=== PATIENT | male | born 1975 | race Caucasian/White ===

== ENCOUNTER 2021-08-14 10:20 | Outpatient (CLI) | payer MEDICAID, SELFPAY ==
[2021-08-14 10:58] LABS: Absolute Lymphocyte Count 1.79 X10^3/uL (0.83-4.51); Absolute Neutrophil Count 4.4 X10^3/uL (2.0-7.7); Basophil# 0.05 X10^3/uL; Basophil% 0.7 % (0-1); Eosinophils% 1.5 % (0-5); Hematocrit 45.3 % (40-54); Lymphocyte # 1.79 X10^3/ul (0.83-4.51); Lymphocyte % 26.1 % (19-41); Mean Corp Hgb Conc 33.1 g/dL (32-36); Mean Corpuscular Hgb 28.5 pg (27.0-32.0); Mean Corpuscular Volume 86.1 fL (80-94); Mean Platelet Vol. 10.6 fl (6.2-12.0); Monocyte% 7.3 % (0-10); NRBC Flagged by Analyzer 0 % (0-5); Neutrophil % 64.3 % (47-70); Platelet Count 266 K/mm3 (150-450); RBC Distribution Width CV 12.2 % (11.6-14.6); RBC Distribution Width SD 38.6 fl (35.1-43.9); Red Blood Count 5.26 M/mm3 (4.6-6.2); White Blood Count 6.9 K/mm3 (4.4-11.0)
[2021-08-14 11:38] LABS: ALB/GLOB Ratio 1.1 RATIO (0.9-2.4); AST(SGOT) 15 U/L (15-37); Alanine Aminotransfer ALT/SGPT 24 U/L (16-61); Albumin, Serum 3.8 g/dL (3.2-5.0); Alkaline Phosphatase 77 U/L (45-117); Anion Gap 5 (5-15); BUN 12 mg/dL (7-18); Calcium,Total 8.6 mg/dL (8.5-10.1); Chloride 105 mmol/L (98-107); Creatinine, Serum 0.92 mg/dL (0.70-1.30); EST Glomerular Filtration Rate 95 mL/min (>60); Est Glom Filt Rate - Afr Amer 115 mL/min (>60); Globulin 3.5 g/dL (2.2-4.2); Glucose 73 mg/dL (74-106); Lipase 156 U/L (73-393); Potassium 3.9 mmol/L (3.5-5.1); Protein, Total 7.3 g/dL (6.4-8.2); Sodium Level 138 mmol/L (136-145); T4 Free Direct 0.93 ng/dL (0.76-1.46)
[2021-08-15 08:33] LABS: Thyroid Peroxidase AB 33 IU/mL (0-34)
== END 2021-08-14 23:59 | disposition home or self-care (01) ==
LOC: PAVLAB 10:27
PROVIDERS: PCP Nurse Practitioner Adult Health; Referring Provider Nurse Practitioner Adult Health; Visit Provider Nurse Practitioner Adult Health
DX: K51.911 Ulcerative colitis, unspecified with rectal bleeding (principal)
CPT/HCPCS: 36415; 80053; 83690; 84439; 84443; 85025; 86376

== ENCOUNTER 2021-10-30 05:42 | Day surgery (SDC) | payer MEDICAID, SELFPAY ==
[2021-10-30] MEDS: Lactated Ringers 1,000 ML 15 ML IV (06:20)
[2021-10-30 06:30] VITALS: BP 123/64; PULSE 65; RESP 16; TEMP 36.3; O2SAT 98; BMI 23.2
--- NOTE | 2021-10-30 06:59 | PCM.HP.BLA ---
History and Physical Date of Admission: 10/30/21 45 M who presents to the office today for establish care with GI for ulcerative colitis. Flare of symptoms x one month. Having diarrhea and dark blood in stools. 5 lb weight loss in past 2 wks unintentionally. Denies heartburn, reflux, cough, sore throat, dysphagia, nausea, vomiting, bloating, constipation. Diagnosed in 2009, tried several meds (he doesn't recall names) without relief; symptoms resolved spontaneously. No rashes. No dry eyes or dry mouth. Left eye has drooped intermittently recently. Back pain, knee pains Increased stress recently. Sertraline is a new medication. 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 2001 first colonoscopy, wasn't fully sedated, diagnosed with IBS. 2009, second and most recent colonoscopy, no issues, diagnosed with ulcerative colitis. Uncle of colon cancer. Cousins with ulcerative colitis. ROS Const Constitutional: Positive for fatigue; No anorexia, body ache, chills, excessive sweating, fever(s), frequent falls, headache(s), decreased energy, malaise, night sweats, snoring, weakness, weight change, sleep problems, abnormal sleep pattern, change in appetite or other Eyes Eyes: No blurry vision, change in vision, double vision, irritation, discharge, vision loss, dry eyes, bulging eyes, floaters, visual disturbances, eye pain, Light sensitivity, spots in vision, tunnel vision or other ENT ENT: No abnormal hearing, ear or mastoid pain, ear discharge, ear pressure, hearing loss, tinnitus, dizziness/vertigo, balance problems, nosebleed/epistaxis, nasal congestion, nasal obstruction, nose pain, sinus pressure, sinus pain, nasal discharge, post nasal drip, headache(s), facial pain, dental pain, dry mouth, difficulty swallowing, bad breath, hoarseness, lip swelling, mouth lesions, mouth pain, neck pain, sore throat, tongue swelling, throat swelling or other Resp Respiratory: No cough, change in phlegm color, chest congestion, excessive phlegm production, hemoptysis, pain on inspiration, shortness of breath, pain with cough, snoring, stridor, wheezing or other Cardio Cardiology: No chest pain at rest, chest pain with exertion, leg pain with exertion, excessive sweating, shortness of breath, dyspnea on exertion, generalized swelling, irregular heart rhythm, lightheadedness, orthopnea, radiating jaw, neck or arm pain, fast heart rate, slow heart rate, palpitations, difficulty breathing or other Gastro GI: No difficulty swallowing Musc Musculoskeletal: Positive for joint pain, back pain and Arthritis; No abnormal gait, deformity, joint swelling, limited range of motion, loss of height, muscle cramps, muscle weakness, decreased muscle mass, myalgias, neck pain, numbness, radiating pain into limb, stiffness, tingling, sciatica, restless legs, leg pain at night, leg pain with exertion or other Neuro Neurology: No abnormal gait, abnormal hearing, behavioral changes, confusion, weakness, frequent falls, headache(s), memory loss, numbness, tingling, visual disturbances or restless legs Psych Psychiatric: No abnormal sleep pattern, No lack of enjoyment, Positive for anxiety, No behavioral changes, No change in appetite, No confusion, Positive for depression, No difficulty concentrating, No hopelessness, No irritability, No memory loss, No mood swings, No panic attacks, Positive for paranoia, No Thoughts of harming yourself/Others, No hallucinations, No Behavioral Problems, No Compulsive Behavior, No hyperactivity, Positive for inattentiveness, Positive for obsessions/compulsions, No Temper Tantrums, No suicidal ideation and No other Endo Endocrine: Positive for fatigue; No excessive sweating, weight change or other Aller/Imm Allergy/Immunologic: No lip swelling, throat swelling, tongue swelling or wheezing Nestor/Lymp Hematologic/Lymphatic: No easy bleeding, easy bruising, enlarged lymph nodes or other Exam Const General: cooperative, healthy appearing, well developed and well groomed Nutritional Appearance: thin Neck Neck: normal visual inspection and supple Resp Effort & Inspection: normal respiratory effort GI Inspection: normal to inspection Assessment and Plan Assessment and Plan (1) Hematochezia: Status: Acute (2) Diarrhea: Status: Acute (3) Ulcerative colitis: Status: Acute Orders: Orders: CRP Today K92.1, R19.7, K51.90 Erythrocyte Sed Rate Today K92.1, R19.7, K51.90 Calprotectin, Stool Today K92.1, R19.7, K51.90 Celiac Disease Profile Today K92.1, R19.7, K51.90 Ova and Parasites 8623 Today K92.1, R19.7, K51.90 CDIFF (PCR) Today K92.1, R19.7, K51.90 ENTERIC PATHOGEN PANEL STOOL Today K92.1, R19.7, K51.90 Stool Lactoferrin/WBC Today K92.1, R19.7, K51.90 ANCA Today K92.1, R19.7, K51.90 Giardia Lamblia, Stool EIA Today K92.1, R19.7, K51.90 Immunoglobulin E Today K92.1, R19.7, K51.90 Immunoglobulin G Today K92.1, R19.7, K51.90 Immunoglobulin M Today K92.1, R19.7, K51.90 Miscellaneous Lab Procedure 2 Today K92.1, R19.7, K51.90 Plan: Case discussed with Dr Grijalva. Hx of ulcerative colitis. Flare of diarrhea and hematochezia x one month. Will check blood test, stool tests, and colonoscopy is scheduled in October. Will treat with prednisone 40 mg daily to get quick relief of symptoms, reviewed possible side effects. Briefly brought up treatment for ulcerative colitis with goal of remission, but he stated he just wants to make sure he doesn't have colon cancer. f/u with Dr Grijalva 2 wks after colonoscopy. Plan Details Other Medications: New: prednisone 40 mg (2 x 20 mg) PO DAILY 60 tabs 0RF I have re-examined the patient. There are no clinical changes since date of exam.
--- NOTE | 2021-10-30 07:00 | COLBX_PTH ---
PATIENT: ELENA DURANT LOC: EN U#:[id number] AGE/SX: 45/M ROOM: RE10/30/[address]: Dr. Frankie Grijalva DO : 1975 BED: DIS: 10/30/2021 SPEC #: [id number] RECD: 10/30/21 08:06 STATUS: QUENTIN KENNEDY #: [id number] MINERVA: 10/30/21 07:[address]: Frankie Grijalva DEPT: SURGICAL PATHOLOGY RECD BY: Diandra Nina ENTERED: 10/30/21 08:41 SP TYPE: COLON BX OTHR DR: Annemarie Rader, PIE[facility] Tissues: A - Ileum, NOS B - Ascending colon C - Transverse colon D - Descending colon E - Sigmoid colon biopsy F - Rectum, NOS Procedures: Surgery Specimen Level IV HEADER OPERATION: Colonoscopy (MAC), culture, biopsies PRE-OP DIAGNOSIS: Hematochezia, diarrhea, ulcerative colitis TISSUE SUBMITTED: A - Terminal ileum biopsy, B ? Ascending colon biopsy, C ? Transverse colon biopsy, D ? Descending colon biopsy, E ? Sigmoid colon biopsy, F ? Rectum biopsy MICROSCOPIC DIAGNOSIS A. Terminal ileum, biopsy: Fragments of small intestinal mucosa, no pathologic diagnosis. B. Ascending colon, biopsy: Fragments of colonic mucosa, no pathologic diagnosis. C. Transverse colon, biopsy: Fragments of colonic mucosa, no pathologic diagnosis. D. Descending colon, biopsy: Focal acute colitis. Negative for dysplasia. See comment. E. Sigmoid colon, biopsy: Focal chronic active colitis. Negative for dysplasia. See microscopic description and comment. F. Rectal biopsy: Moderate to marked chronic active colitis. Negative for dysplasia. See microscopic description and comment. SJ:deena 10/31/2021 COMMENT D. The specimen shows focal cryptitis and crypt abscesses. Glandular distortion or granulomas are not seen. The findings are consistent with inflammatory bowel disease (ulcerative colitis). Correlation with clinical, endoscopic findings and appropriate follow up are necessary. MICROSCOPIC DESCRIPTION Slides are reviewed. E. The specimen shows fragments of colonic mucosa with focal mild glandular distortion, acute and chronic inflammatory cell infiltrate in the lamina propria, cryptitis and crypt abscesses. Granulomas are not seen. F. The specimen shows fragments of colonic mucosa with moderate to marked acute and chronic inflammatory cell infiltrate in the lamina propria, glandular distortion, cryptitis and crypt abscesses. Granulomas are not seen. No evidence of dysplasia. GROSS DESCRIPTION A - Received in fixative is one container labeled with the patient's name and designated terminal ileum biopsy. The specimen consists of multiple irregular fragments of light polanco soft tissue that in aggregate measure 0.5 x 0.5 x 0.1 cm. The specimen is totally submitted in one cassette. B - Received in fixative is one container labeled with the patient's name and designated ascending colon biopsy. The specimen consists of multiple irregular fragments of light polanco soft tissue that in aggregate measure 1 x 0.3 x 0.1 cm. The specimen is totally submitted in one cassette. C - Received in fixative is one container labeled with the patient's name and designated transverse colon biopsy. The specimen consists of two irregular fragments of light polanco soft tissue that in aggregate measure 0.7 x 0.5 x 0.1 cm. The specimen is totally submitted in one cassette. D - Received in fixative is one container labeled with the patient's name and designated descending colon biopsy. The specimen consists of multiple irregular fragments of light polanco soft tissue that in aggregate measure 1 x 0.4 x 0.1 cm. The specimen is totally submitted in one cassette. E - Received in fixative is one container labeled with the patient's name and designated sigmoid colon biopsy. The specimen consists of multiple irregular fragments of light polanco soft tissue that in aggregate measure 1 x 0.5 x 0.1 cm. The specimen is totally submitted in one cassette. F - Received in fixative is one container labeled with the patient's name and designated rectal biopsy. The specimen consists of multiple irregular fragments of light polanco soft tissue that in aggregate measure 1.5 x 0.4 x 0.1 cm. The specimen is totally submitted in one cassette. / CATINA:deena 10/30/2021 TC:2 CPT: 22012 x6
[2021-10-30 07:35] VITALS: BP 101/58; BP 123/64; PULSE 63; RESP 14; TEMP 36.1; O2SAT 100
[2021-10-30 07:40] VITALS: BP 101/58; BP 123/64; PULSE 65; RESP 14; O2SAT 98
[2021-10-30 07:45] VITALS: BP 123/64; BP 99/60; PULSE 61; RESP 14; O2SAT 100
[2021-10-30 07:50] VITALS: BP 100/60; BP 123/64; PULSE 63; RESP 14; TEMP 36.3; O2SAT 100
--- NOTE | 2021-10-30 08:09 | OP.COLON_ITS ---
Patient Name: Surya Cyr Procedure Date: 10/30/2021 7:07 AM Date of : 1975 Age: 45 Procedure: Colonoscopy Indications: Ulcerative colitis Providers: Frankie Grijalva DO Medicines: See the Anesthesia note for documentation of the administered medications Patient Profile: This is a 45 year old male. Last Colonoscopy: 10 years ago. Complications: No immediate complications. Procedure: Pre-Anesthesia Assessment: - Prior to the procedure, a History and Physical was performed, and patient medications and allergies were reviewed. The patient is competent. The risks and benefits of the procedure and the sedation options and risks were discussed with the patient. All questions were answered and informed consent was obtained. Patient identification and proposed procedure were verified by the physician in the pre-procedure area. Mental Status Examination: alert and oriented. Airway Examination: normal oropharyngeal airway and neck mobility. Respiratory Examination: clear to auscultation. CV Examination: normal. Prophylactic Antibiotics: The patient does not require prophylactic antibiotics. Prior Anticoagulants: The patient has taken no previous anticoagulant or antiplatelet agents. ASA Grade Assessment: II - A patient with mild systemic disease. After reviewing the risks and benefits, the patient was deemed in satisfactory condition to undergo the procedure. The anesthesia plan was to use moderate sedation / analgesia (conscious sedation). Immediately prior to administration of medications, the patient was re-assessed for adequacy to receive sedatives. The heart rate, respiratory rate, oxygen saturations, blood pressure, adequacy of pulmonary ventilation, and response to care were monitored throughout the procedure. The physical status of the patient was re-assessed after the procedure. After I obtained informed consent, the scope was passed under direct vision. Throughout the procedure, the patient's blood pressure, pulse, and oxygen saturations were monitored continuously. The Colonoscope was introduced through the anus and advanced to the terminal ileum. The colonoscopy was performed without difficulty. The patient tolerated the procedure well. The quality of the bowel preparation was good. Moderate Sedation: Moderate (conscious) sedation was administered by the endoscopy nurse and supervised by the endoscopist. The patient's oxygen saturation, heart rate, blood pressure and response to care were monitored. Total physician intraservice time was 15 minutes. Scope In: 7:12:15 AM Scope Withdrawal Time 0 hours 11 minutes 41 seconds Scope Out: 7:29:01 AM Total Procedure Duration Time 0 hours 16 minutes 46 seconds Findings: The perianal and digital rectal examinations were normal. Inflammation was found in a continuous and circumferential pattern from the anus to the splenic flexure. This was graded as Estrada Score 3 (severe, with spontaneous bleeding, ulcerations), and when compared to the previous examination, the findings are worsened. Biopsies were taken with a cold forceps for histology. Verification of patient identification for the specimen was done. Estimated blood loss was minimal. The terminal ileum appeared normal. Biopsies were taken with a cold forceps for histology. Verification of patient identification for the specimen was done. Estimated blood loss was minimal. Impression: - Severe (Estrada Score 3) ulcerative colitis, worsened since the last examination. Biopsied. - The examined portion of the ileum was normal. Biopsied. Recommendation: - Discharge patient to home. - Resume previous diet. - Continue present medications. - Await pathology results. - Repeat colonoscopy in 1 year for surveillance. - Return to GI office. Procedure Code(s): --- Professional --- 46394, Colonoscopy, flexible; with biopsy, single or multiple G0500, Moderate sedation services provided by the same physician or other qualified health child care coordinator performing a gastrointestinal endoscopic service that sedation supports, requiring the presence of an independent trained observer to assist in the monitoring of the patient's level of consciousness and physiological status; initial 15 minutes of intra-service time; patient age 5 years or older (additional time may be reported with [id number], as appropriate) CPT copyright 2017 [employer]. All rights reserved. The codes documented in this report are preliminary and upon compliance testing analyst review may be revised to meet current compliance requirements. Frankie Grijalva DO 10/30/2021 8:08:24 AM This report has been signed electronically. Number of Addenda: 1 Note Initiated On: 10/30/2021 7:07 AM Addendum Number: 1 Addendum Date: 04/05/2022 6:27:04 AM MAC was used as sedation for this procedure. Frankie Grijalva DO 04/05/2022 6:27:11 AM This report has been signed electronically.
--- NOTE | 2021-10-30 08:09 | OP.CCLET_ITS ---
04/05/2022 Rayshawn Banuelos Re : Colonoscopy procedure for Surya Cyr Dear Dior This procedure was performed on Saturday, October 30, 2021. My impressions and recommendations are as follows: Impressions : - Severe (Estrada Score 3) ulcerative colitis, worsened since the last examination. Biopsied. - The examined portion of the ileum was normal. Biopsied. Recommendations : - Discharge patient to home. - Resume previous diet. - Continue present medications. - Await pathology results. - Repeat colonoscopy in 1 year for surveillance. - Return to GI office. My findings are described in the full procedure note, which is enclosed. If I can be of further assistance, please feel free to contact me at . Sincerely, Frankie Grijalva, 10/30/2021 8:08:24 AM This report has been signed electronically.
[2021-10-30 08:20] VITALS: BP 123/64
== END 2021-10-30 08:21 | disposition home or self-care (01) ==
LOC: EN 05:43 → AC 05:44
PROVIDERS: Visit Provider Internal Medicine Gastroenterology
PROC: 0DJD8ZZ Inspection of Lower Intestinal Tract, Via Natural or Artificial Opening Endoscopic (ICD-10-PCS; CPT 45378; principal; 2021-10-30 06:55)
DX: K51.90 Ulcerative colitis, unspecified, without complications (principal); K92.1 Melena; R19.7 Diarrhea, unspecified; Z80.0 Family history of malignant neoplasm of digestive organs
CPT/HCPCS: 45380; 87493; 87506; 88305; J7120; J2405

== ENCOUNTER → 2021-11-21 | Outpatient (CLI) | payer MEDICAID, SELFPAY ==
[2021-11-21 11:04] LABS: HIV - WCH Non-Reactive (Nonreactive); Syphilis Antibodies Non-reactive
[2021-11-21 16:16] LABS: Chlamydia Trachomatis by PCR Negative (Negative); Neisserai gonorrhoeae by PCR Negative (Negative); Probe Check PASS; Sample Adequacy Control PASS; Specimen Processing Control PASS
[2021-11-22 19:23] LABS: Probe Check PASS; Sample Adequacy Control PASS; Specimen Processing Control PASS; Trichomonas Vag DNA by PCR Negative (Negative)
== END | disposition home or self-care (01) ==
PROVIDERS: Referring Provider Nurse Practitioner Adult Health; Visit Provider Nurse Practitioner Adult Health
DX: Z11.3 Encounter for screening for infections with a predominantly sexual mode of transmission (principal)
CPT/HCPCS: 36415; 86703; 86780; 87491; 87591; 87661